=== PATIENT | female | born 1985 | race Caucasian/White ===

== ENCOUNTER 2021-08-18 09:22 | Emergency (ER) | payer MEDICAID ==
[2021-08-18 09:32] VITALS: BP 135/72
[2021-08-18] MEDS ORDERED: AMOXICILLIN 250 MG CAPSULE PO STA (09:55)
[2021-08-18] MEDS ORDERED: HYDROcod/ACETAM 5/325 MG TABLET PO STA (09:55)
--- NOTE | 2021-08-18 09:58 | ED Physician Documentation ---
PD HPI HEENT - Stated complaint Stated Complaint: LT FACE PX - Chief complaint Chief Complaint: Heent - History obtained from History obtained from: Patient - Additional information Additional information: The patient comes to the emergency department chief complaint of dental pain. She states it started several days ago and seems to be stemming from one of her left maxillary molars. She has noticed some swelling of her face today. No difficulty speaking or swallowing. No airway compromise. No fevers or chills. No redness of her face. No intraoral drainage. No trauma. Patient states she moved here late last year and has not established with a dentist yet. She tried to be seen at walk-in clinic yesterday, but states she was turned away because of her insurance. No other complaints at this time. Review of Systems Ten Systems: 10 systems reviewed and negative Constitutional: reports: Reviewed and negative Eyes: reports: Reviewed and negative Ears: reports: Reviewed and negative Nose: reports: Reviewed and negative Throat: reports: Dental pain / toothache Cardiac: reports: Reviewed and negative Respiratory: reports: Reviewed and negative GI: reports: Reviewed and negative : reports: Reviewed and negative Skin: reports: Reviewed and negative Musculoskeletal: reports: Reviewed and negative Neurologic: reports: Reviewed and negative Psychiatric: reports: Reviewed and negative Endocrine: reports: Reviewed and negative Immunocompromised: reports: Reviewed and negative PD PAST MEDICAL HISTORY - Present Medications Home Medications: Ambulatory Orders Medication Instructions Recorded Confirmed Amoxicillin 500 mg PO TID 7 Days #21 cap 08/18/21 HYDROcod/ACETAM 5/325 [[place] 5/325] 1 - 2 tablet PO Q6H PRN #14 tablet 08/18/21 - Allergies Allergies/Adverse Reactions: Allergies Allergy/AdvReac Type Severity Reaction Status Date / Time No Known Drug Allergies Allergy Verified 08/18/21 09:29 PD ED PE NORMAL - Vitals Vital signs reviewed: Yes - General General: Alert and oriented X 3, No acute distress, Well developed/nourished, Other (The patient appears moderately uncomfortable) - HEENT HEENT: Atraumatic, PERRL, EOMI, Moist mucous membranes, Other (No obvious decay or dental breakage. Tenderness to palpation of her left second maxillary molar. No gingival edema; Mild buccal edema. No obvious drainage. No edema of tongue or other intraoral structures. Handling secretions.) - Neck Neck: Supple, no meningeal sign - Respiratory Respiratory: No respiratory distress - Abdomen Abdomen: Normal bowel sounds, Soft, Non tender, Non distended - Derm Derm: Warm and dry - Extremities Extremities: No deformity - Neuro Neuro: Alert and oriented X 3 - Psych Psych: Normal mood, Normal affect Results - Vitals Vitals: Vital Signs - 24 hr 08/18/21 09:30 Temperature 37.0 C Heart Rate 97 Respiratory 19 Rate Blood Pressure 135/72 H O2 Saturation 100 Oxygen O2 Source Room air PD MEDICAL DECISION MAKING - ED course Complexity details: considered differential, d/w patient ED course: Patient was given doses of amoxicillin and hydrocodone in the emergency department. Her boyfriend was on hand to drive her home. We have discussed the need for dental follow-up as soon as possible, as well as usual indications for return. Departure - Departure Disposition: 01 Home, Self Care Clinical Impression: Dental infection Condition: Stable Instructions: ED Tooth Pain Prescriptions: Amoxicillin 500 mg PO TID 7 Days #21 cap HYDROcod/ACETAM 5/325 [[place] 5/325] 1 - 2 tablet PO Q6H PRN #14 tablet PRN Reason: Pain Comments: Your prescriptions have been electronically transmitted to [facility] in [place]. Please take the antibiotics every day, as directed, until course is complete. Please make an appointment to see a dentist as soon as possible for definitive care.
== END 2021-08-18 10:19 | disposition home or self-care (01) ==
LOC: ED 09:22
DX: K04.6 Periapical abscess with sinus (principal)
CPT/HCPCS: 99282; A9270